=== PATIENT | male | born 1950 | race Caucasian/White ===

== ENCOUNTER 2021-08-07 19:15 | Emergency (ER) | payer MEDICARE ==
[~2021-08-07] VITALS: Ht 170.2 cm; Wt 67.9 kg
[2021-08-07] MEDS ORDERED: PROTHROMBIN COMPLEX CONCEN IV ONE (19:50)
[2021-08-07 19:51] LABS: BASO % 0.1 % (0.0-1.0); HEMATOCRIT 35.7 % (42.0-52.0); HEMOGLOBIN 12.1 g/dl (13.5-17.5); LYMPH # 0.7 10^3/uL (1.5-5.0); MEAN CORPUSCULAR HEMOGLOBIN 34.3 pg (27.0-33.0); MEAN CORPUSCULAR HGB CONC 33.9 g/dl (32.0-36.5); MEAN CORPUSCULAR VOLUME 101.1 fl (80.0-96.0); MONO # 1.2 10^3/uL (0.0-0.8); MONO % 13.6 % (2.0-8.0); NEUTROPHILS # 6.9 10^3/uL (1.5-8.5); NEUTROPHILS % 77.8 % (36.0-66.0); PLATELET COUNT, AUTOMATED 108 10^3/uL (150-450); RED BLOOD COUNT 3.53 10^6/uL (4.30-6.10); WHITE BLOOD COUNT 8.8 10^3/uL (4.0-10.0)
[2021-08-07] MEDS ORDERED: LOSA50TA28 PO (19:56)
[2021-08-07] MEDS ORDERED: PRAV40TA2 PO (19:58)
[2021-08-07] MEDS ORDERED: ELIQ5TAB PO (19:58)
[2021-08-07] MEDS ORDERED: METO1TAB33 PO (20:01)
[2021-08-07 20:05] LABS: INR 1.3; PROTHROMBIN TIME 16.6 SECONDS (12.7-14.5)
[2021-08-07 20:06] LABS: PARTIAL THROMBOPLASTIN TIME 30.3 SECONDS (25.9-37.0)
[2021-08-07] MEDS ORDERED: LABETALOL 100MG/20ML VIAL IV STA (20:33)
[2021-08-07 20:34] LABS: ALBUMIN 4.1 GM/DL (3.2-5.2); ALT/SGPT 17 U/L (12-78); BILIRUBIN,DIRECT 0.8 MG/DL (0.0-0.2); BILIRUBIN,TOTAL 2.1 MG/DL (0.2-1.0); BLOOD UREA NITROGEN 19 MG/DL (7-18); CALCIUM LEVEL 9.4 MG/DL (8.8-10.2); CARBON DIOXIDE LEVEL 25 MEQ/L (21-32); CHLORIDE LEVEL 105 MEQ/L (98-107); CREATININE FOR GFR 1.09 MG/DL (0.70-1.30); ETHYL ALCOHOL (ETHANOL) < 0.003 % (0.000-0.010); GLOMERULAR FILTRATION RATE > 60.0 (>42); GLUCOSE, FASTING 124 MG/DL (70-100); POTASSIUM SERUM 3.7 MEQ/L (3.5-5.1); RSV AMPLIFICATION NEGATIVE (NEGATIVE); SODIUM LEVEL 141 MEQ/L (136-145); THYROID STIMULATING HORMONE 0.715 uIU/ML (0.358-3.740); TOTAL PROTEIN 7.1 GM/DL (6.4-8.2)
[2021-08-07] MEDS ORDERED: ONDANSETRON 4MG/2ML VIAL IV ONE (20:35)
[2021-08-07 20:39] VITALS: BP 159/96
[2021-08-07] MEDS ORDERED: niCARdipine IV 40 MG in IV 1 EA IV SCH (20:45)
[2021-08-07 21:00] VITALS: BP 152/93
== END 2021-08-07 21:21 | disposition short-term general hospital (02) ==
LOC: M ED 19:15
DX: S00.83XA Contusion of other part of head, initial encounter (principal); S06.5X0A Traumatic subdural hemorrhage without loss of consciousness, initial encounter; W06.XXXA Fall from bed, initial encounter; Y92.009 Unspecified place in unspecified non-institutional (private) residence as the place of occurrence of the external cause; Y93.9 Activity, unspecified; Y99.9 Unspecified external cause status; M85.88 Other specified disorders of bone density and structure, other site; M43.12 Spondylolisthesis, cervical region; M41.9 Scoliosis, unspecified; M48.02 Spinal stenosis, cervical region; I48.91 Unspecified atrial fibrillation; I10 Essential (primary) hypertension; Z79.01 Long term (current) use of anticoagulants; Z79.899 Other long term (current) drug therapy
CPT/HCPCS: 70450; 71045; 72125; 80048; 80076; 82077; 84443; 85025; 85610; 85730; 86850; 86900; 86901; 86927; 87631; 93005; 93041; 94760; 96374; 96375; 99285; J2405; J7168; P9017